=== PATIENT | male | born 1985 | race Caucasian/White ===

== ENCOUNTER 2018-07-20 11:37 | Emergency (ER) | payer BC ==
[~2018-07-20] VITALS: Ht 182.9 cm; Wt 117.9 kg
[2018-07-20 11:40] VITALS: BP 148/101
[2018-07-20] MEDS ORDERED: MUPI15CR TP (12:10)
[2018-07-20] MEDS ORDERED: SULF1TAB24 PO (12:10)
--- NOTE | 2018-07-20 12:13 | PHYS DOC ---
Past History Past Medical History: No Pertinent History Smoking: Cigarettes Adult General Chief Complaint Chief Complaint: CELLULITIS HPI HPI Patient is a 33 year old male who presents with complaining of area of erythema in upper extremity. Patient complaining of erythema and edema of left thumb started 1 week ago with drainage of pus movements of condition. Patient states he had another lesion in his right forearm and left forearm started 4 days ago that gradually getting force with mild itching. Patient states he thinks he has a spider bite because there is plenty of spider in his work area. Patient had history of MRSA. Patient denies fever and chills, nausea and vomiting, IV drug Use. Review of Systems Review of Systems Constitutional: Denies fever or chills [] Eyes: Denies change in visual acuity, redness, or eye pain [] HENT: Denies nasal congestion or sore throat [] Respiratory: Denies cough or shortness of breath [] Cardiovascular: No additional information not addressed in HPI [] GI: Denies abdominal pain, nausea, vomiting, bloody stools or diarrhea [] : Denies dysuria or hematuria [] Musculoskeletal: Denies back pain or joint pain [] Integument: Reports rash and skin lesions [] Neurologic: Denies headache, focal weakness or sensory changes [] Endocrine: Denies polyuria or polydipsia [] All other systems were reviewed and found to be within normal limits, except as documented in this note. Allergies Allergies Allergies Coded Allergies Type Severity Reaction Last Updated Verified No Known Drug Allergies 07/20/18 No Physical Exam Physical Exam Constitutional: Well developed, well nourished, mild distress, non-toxic appearance. [] HENT: Normocephalic, atraumatic, oropharynx moist, no oral exudates, nose normal. [] Eyes: PERRLA, EOMI, conjunctiva normal, no discharge. [] Neck: Normal range of motion, no tenderness, supple, no stridor. [] Cardiovascular:Heart rate regular rhythm, no murmur [] Lungs & Thorax: Bilateral breath sounds clear to auscultation [] Skin: Warm, dry, 3 areas of skin cellulitis of left thumb and bilateral forearm without drainage of pus or sign of abscess Back: No tenderness, no CVA tenderness. [] Extremities: No tenderness, no cyanosis, no clubbing, ROM intact, no edema. [] Neurologic: Alert and oriented X 3, normal motor function, normal sensory function, no focal deficits noted. [] Psychologic: Affect normal, judgement normal, mood normal. [] EKG EKG [] Radiology/Procedures Radiology/Procedures [] Course & Med Decision Making Course & Med Decision Making Evaluation of patient in ER showed 33-year-old male patient with a of cellulitis of bilateral upper extremity without sign of abscess. Plan to give a course of Bactroban and Bactrim and instruction to return to ER if not getting better in 48 hours. Dragon Disclaimer Dragon Disclaimer This electronic medical record was generated, in whole or in part, using a voice recognition dictation system. Departure Departure: Impression: Primary Impression: Cellulitis of upper extremity Additional Impressions: MRSA cellulitis Tobacco abuse Tobacco abuse counseling Disposition: HOME, SELF-CARE (at 1207) Referrals: PCP,NO (PCP) Patient Instructions: Cellulitis, Community-Associated MRSA, Smoking Cessation , Tips For Success Additional Instructions: Follow-up with your primary care physician in 3-5 days Return to ER if not getting better Scripts Mupirocin Calcium (BACTROBAN) 15 Gm Cream..g. 1 ELIZ TP TID, #30 GM Prov: TESHA ROSALES MD 07/20/18 Sulfamethoxazole/Trimethoprim (BACTRIM DS TABLET) 1 Each Tablet 1 TAB PO BID, #14 TAB Prov: TESHA ROSALES MD 07/20/18 Problem Qualifiers TESHA ROSALES MD Jul 20, 2018 12:13
== END 2018-07-20 12:24 | disposition home or self-care (01) ==
LOC: ER 11:37
DX: L03.114 Cellulitis of left upper limb (principal); L03.113 Cellulitis of right upper limb; F17.210 Nicotine dependence, cigarettes, uncomplicated; Z71.6 Tobacco abuse counseling
CPT/HCPCS: 99283

== ENCOUNTER 2018-10-16 16:26 | Emergency (ER) | payer BC ==
[~2018-10-16] VITALS: Ht 185.4 cm; Wt 124.3 kg
[~2018-10-16 16:26] MED LIST: MUPI15CR TP; SULF1TAB24 PO
--- NOTE | 2018-10-16 16:58 | PHYS DOC ---
Past History Past Medical History: No Pertinent History Past Surgical History: No Surgical History Smoking: Cigarettes Alcohol Use: Occasionally Drug Use: None Adult General Chief Complaint Chief Complaint: UPPER EXTREMITY INJURY HPI HPI Patient is a33 year old male who presents with incision to his left, nondominant , index finger. 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 This happened shortly prior to arrival. Patient used quick clot to stop the bleeding. Patient reports that there was no pulsatile bleeding. Patient denies any numbness or tingling. Pain is mild to moderate in intensity. Movement makes it worse. Holding direct pressure along with the quick clot helped to stop the bleeding.[] Review of Systems Review of Systems Constitutional: Denies fever or chills [] Eyes: Denies change in visual acuity, redness, or eye pain [] HENT: Denies nasal congestion or sore throat [] Respiratory: Denies cough or shortness of breath [] Cardiovascular: No chest pain or palpitations[] GI: Denies abdominal pain, nausea, vomiting, bloody stools or diarrhea [] : Denies dysuria or hematuria [] Musculoskeletal: See history of present illness[] Integument: Denies rash or skin lesions [] Neurologic: Denies headache, focal weakness or sensory changes [] Endocrine: Denies polyuria or polydipsia [] All other systems were reviewed and found to be within normal limits, except as documented in this note. Allergies Allergies Allergies Coded Allergies Type Severity Reaction Last Updated Verified No Known Drug Allergies 07/20/18 No Physical Exam Physical Exam Constitutional: Well developed, well nourished, no acute distress, non-toxic appearance. [] HENT: Normocephalic, atraumatic, bilateral external ears normal, oropharynx moist, no oral exudates, nose normal. [] Eyes: PERRLA, EOMI, conjunctiva normal, no discharge. [] Neck: Normal range of motion, no tenderness, supple, no stridor. [] Cardiovascular:Heart rate regular rhythm, no murmur [] Lungs & Thorax: Bilateral breath sounds clear to auscultation [] Abdomen: Not examined[] Skin: Warm, dry, no erythema, no rash. [] Back: No tenderness, no CVA tenderness. [] Extremities: Tenderness present over the distal phalanx of his left index finger , dorsal surface. Refill is less than 2 seconds, FDS, FDP, and extensor mechanisms are intact, 2 point discrimination is less than 5 mm, no cyanosis, no clubbing, ROM intact, no edema. [] Neurologic: Alert and oriented X 3, normal motor function, normal sensory function, no focal deficits noted. [] Psychologic: Affect normal, judgement normal, mood normal. [] EKG EKG [] Radiology/Procedures Radiology/Procedures [] Course & Med Decision Making Course & Med Decision Making Pertinent Labs and Imaging studies reviewed. (See chart for details) Patient arrived, was placed in bed, in tolerated exam well. Patient had to have removal of the quick clot product which she tolerated well. Wound was repaired. Hemostasis was achieved. Patient was discharged in improved condition. Medical decision making: There is no evidence of tendon, neurologic, nor vascular injury.[] Dragon Disclaimer Dragon Disclaimer This electronic medical record was generated, in whole or in part, using a voice recognition dictation system. Departure Departure: Impression: Primary Impression: Laceration of left index finger Disposition: HOME, SELF-CARE Condition: GOOD Referrals: PCP,NO (PCP) Patient Instructions: Sterile Tape Wound Closure Additional Instructions: Keep the wound clean and dry. Chest from the edge of the Steri-Strips as it starts curling up. When it falls off, the wound should be well healed, consistent with when sutures would come out. Wear the splint to keep the area immobilized to allow for better healing. Follow-up with your regular doctor in 2 days for a wound check. If you do not have a regular doctor, list of local low -cost clinics will be provided for you. Return to the ER if worsening pain, continued bleeding, purulent drainage, increasing redness, or any other concerns. Laceration Repair Lac Repair Indication: [] Procedure: The patient was placed in the appropriate position. The area was then cleansed from the quick clot. The laceration was closed with Steri-Strips and Dermabond. The wound area was then dressed with a sterile dressing. A finger splint was placed to provide immobilization.. Total repaired wound length: 2.5 cm. Other Items: None The patient tolerated the procedure well, hemostasis was achieved. Complications: None. Problem Qualifiers Primary Impression: Laceration of left index finger Encounter type: initial encounter Damage to nail status: without damage Foreign body presence: without foreign body Qualified Codes: S61.211A - Laceration without foreign body of left index finger without damage to nail, initial encounter ANANYA AHUMADA DO Oct 16, 2018 16:58
[2018-10-16] MEDS ORDERED: DIPHTH,PERTUSS(ACELL),TET TOX 0.5 ML DISP.SYRIN. VAX IM ONE (17:00)
[2018-10-16 17:32] VITALS: BP 154/79
== END 2018-10-16 17:33 | disposition home or self-care (01) ==
LOC: ER 16:26
DX: S61.211A Laceration without foreign body of left index finger without damage to nail, initial encounter (principal); F17.210 Nicotine dependence, cigarettes, uncomplicated; W26.0XXA Contact with knife, initial encounter; Y93.89 Activity, other specified; Y92.89 Other specified places as the place of occurrence of the external cause; Y99.8 Other external cause status
CPT/HCPCS: 12001; 90471; 90715; 99283

== ENCOUNTER 2020-03-02 12:45 | Emergency (ER) | payer BC ==
[~2020-03-02] VITALS: Ht 185.4 cm; Wt 124.3 kg
[2020-03-02 12:54] VITALS: BP 187/95
[2020-03-02] MEDS ORDERED: IV NORMAL SALINE 1,000ML 1,000 ML IV ONE (13:00)
[2020-03-02] MEDS ORDERED: IOHEXOL 300 MG/ML 75 ML VIAL. IV ONE (13:15)
--- NOTE | 2020-03-02 13:19 | PHYS DOC ---
Past History Past Medical History: GERD, Hypertension Past Surgical History: No Surgical History Smoking: Cigarettes Alcohol Use: None Drug Use: None General Adult EDM: Chief Complaint: ABDOMINAL PAIN HPI: HPI: 34-year-old male presents with left upper quadrant abdominal discomfort. He does not describe it as a pain. He states it is more like a fullness or pressure in that area. It feels like it is coming from the inside. The patient does not recall which day it started. It has been several days. 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 He comes in today because it will go away and he just wants to make sure he does have a serious injury. He denies fever chills. He has no other symptoms. He is not on any other daily medications but is supposed to be on blood pressure medicine. Review of Systems: Review of Systems: Constitutional: Denies fever or chills Eyes: Denies change in visual acuity HENT: Denies nasal congestion or sore throat Respiratory: Denies cough or shortness of breath Cardiovascular: Denies chest pain or edema GI: dLUQ abdominal pain. Denies nausea, vomiting, bloody stools or diarrhea : Denies dysuria Musculoskeletal: Denies back pain or joint pain Integument: Denies rash Neurologic: Denies headache, focal weakness or sensory changes Endocrine: Denies polyuria or polydipsia Lymphatic: Denies swollen glands Psychiatric: Denies depression or anxiety Heart Score: Risk Factors: Risk Factors: DM, Current or recent (<one month) smoker, HTN, HLP, family history of CAD, obesity. Risk Scores: Score 0 - 3: 2.5% MACE over next 6 weeks - Discharge Home Score 4 - 6: 20.3% MACE over next 6 weeks - Admit for Clinical Observation Score 7 - 10: 72.7% MACE over next 6 weeks - Early Invasive Strategies Current Medications: Current Meds: Current Medications Medications (Trade) Dose Ordered Sig/Osvaldo Start Time Stop Time Status Last Admin Dose Admin Iohexol (Omnipaque 300 Mg/ml) 75 ml 1X ONCE 03/02/20 13:15 03/02/20 13:16 Sodium Chloride 1,000 ml @ 1,000 mls/hr 1X ONCE 03/02/20 13:00 03/02/20 13:59 03/02/20 13:00 1,000 MLS/HR Allergies: Allergies: Allergies Coded Allergies Type Severity Reaction Last Updated Verified No Known Drug Allergies 10/16/18 No Physical Exam: PE: Constitutional: Well developed, well nourished, obese, no acute distress, non- toxic appearance. [] HENT: Normocephalic, atraumatic, bilateral external ears normal, oropharynx moist, no oral exudates, nose normal. [] Eyes: PERRLA, EOMI, conjunctiva normal, no discharge. [] Neck: Normal range of motion, no tenderness, supple, no stridor. [] Cardiovascular: Heart rate regular rhythm, no murmur [] Lungs & Thorax: Bilateral breath sounds clear to auscultation [] Abdomen: Bowel sounds normal, soft, no tenderness, no masses, no pulsatile masses. [] Skin: Warm, dry, no erythema, no rash. [] Back: No tenderness, no CVA tenderness. [] Extremities: No tenderness, no cyanosis, no clubbing, ROM intact, no edema. [] Neurologic: Alert and oriented X 3, normal motor function, normal sensory function, no focal deficits noted. [] Psychologic: Affect normal, judgement normal, mood normal. [] Current Patient Data: Vital Signs: Vital Signs Date Time Temp Pulse Resp B/P (MAP) Pulse Ox O2 Delivery O2 Flow Rate FiO2 03/02/20 12:54 98.2 81 16 187/95 (125) 99 Room Air EKG: EKG: [] Radiology/Procedures: Radiology/Procedures: [] Impressions: Examination: CT of the abdomen pelvis with IV contrast HISTORY: History of left upper quadrant pain COMPARISON: None available TECHNIQUE: Axial CT images of the abdomen pelvis were performed with IV contrast. Coronal and sagittal reformats are performed Exposure: One or more of the following individualized dose reduction techniques were utilized for this examination: 1. Automated exposure control 2. Adjustment of the mA and/or kV according to patient size 3. Use of iterative reconstruction technique FINDINGS: The bibasilar lungs are clear. No evidence of free air identified in the abdomen. The liver demonstrates mild decreased attenuation could be mild hepatic steatosis. The spleen, adrenals grossly appears unremarkable. The gallbladder is minimally distended. The stomach is mildly distended. The common bile duct appears slightly prominent measuring 7 mm. Questionable faint cystic structure identified in the head of the pancreas measuring about 1.5 cm, nonspecific could be artifactual or a pancreatic cyst or cystic lesion. The head and proximal portion of the body of the pancreas appears small and somewhat hypodense. The small bowel is nondilated. The appendix is normal. Feces and gas noted in the colon. The gallbladder is mildly distended The bilateral kidneys enhance symmetrically. Bilateral L5 spondylolysis without evidence of listhesis. IMPRESSION: 1. A 1.5 cm questionable cystic structure identified in the head of the pancreas could be artifactual or pancreatic cyst or cystic lesion.. The head and proximal portion of the body of the pancreas appears small and somewhat hypodense. Pancreatitis is not excluded. Recommend correlation with lab values and follow-up MRI abdomen with MRCP is recommended. 2. Mild prominent appearing common bile duct. Electronically signed by: Carroll Mart MD (03/02/2020 1:37 PM) [id number] DICTATED AND SIGNED BY: CARROLL MART MD DATE: 03/02/20 1337 CC: CHLOE PIERRE DO; PCP,NO ~ Course & Med Decision Making: Course & Med Decision Making Pertinent Labs and Imaging studies reviewed. (See chart for details) The patient's labs are unremarkable. The CT of the abdomen and pelvis does not show a hernia. It does show a possible cystic lesion in the pancreatic head. See official report for details. His lipase is 70. Not sure if this is the cause of the patient's pain or if it is really just a pulled muscle. I have advised that he follow-up with his primary care physician. He also needs to get back on blood pressure medicine as he has hypertension. He is stable for discharge at this time. [] Dragon Disclaimer: Dragon Disclaimer: This electronic medical record was generated, in whole or in part, using a voice recognition dictation system. Departure Departure: Impression: Primary Impression: Left upper quadrant abdominal pain Additional Impressions: Pancreatic abnormality Hypertension Qualified Codes: I10 - Essential (primary) hypertension Disposition: 01 HOME/RESIDENCE PRIOR TO ADM Condition: STABLE Referrals: PCP,NO (PCP) Patient Instructions: Abdominal Pain, [id number], Hypertension, [id number] Additional Instructions: You should follow-up with a primary care physician to have your pancreas further evaluated. CHLOE PIERRE DO March 02, 2020 13:19
[2020-03-02 13:33] LABS: BASO % 0 % (0-3); EOS # 0.3 x10^3/uL (0.0-0.7); EOS % 5 % (0-3); LYMPH # 2.6 x10^3/uL (1.0-4.8); LYMPH % 39 % (24-48); MEAN CORPUSCULAR HEMOGLOBIN 30 pg (25-35); MEAN CORPUSCULAR HGB CONC 34 g/dL (31-37); MEAN CORPUSCULAR VOLUME 90 fL (79-100); MONO # 0.5 x10^3/uL (0.0-1.1); MONO % 7 % (0-9); NEUT # 3.2 x10^3uL (1.8-7.7); NEUT % 49 % (31-73); PLATELET COUNT 252 x10^3/uL (140-400); WHITE BLOOD COUNT 6.7 x10^3/uL (4.0-11.0)
--- NOTE | 2020-03-02 13:40 | RAD ---
Examination: CT of the abdomen pelvis with IV contrast HISTORY: History of left upper quadrant pain COMPARISON: None available TECHNIQUE: Axial CT images of the abdomen pelvis were performed with IV contrast. Coronal and sagittal reformats are performed Exposure: One or more of the following individualized dose reduction techniques were utilized for this examination: 1. Automated exposure control 2. Adjustment of the mA and/or kV according to patient size 3. Use of iterative reconstruction technique FINDINGS: The bibasilar lungs are clear. No evidence of free air identified in the abdomen. The liver demonstrates mild decreased attenuation could be mild hepatic steatosis. The spleen, adrenals grossly appears unremarkable. The gallbladder is minimally distended. The stomach is mildly distended. The common bile duct appears slightly prominent measuring 7 mm. Questionable faint cystic structure identified in the head of the pancreas measuring about 1.5 cm, nonspecific could be artifactual or a pancreatic cyst or cystic lesion. The head and proximal portion of the body of the pancreas appears small and somewhat hypodense. The small bowel is nondilated. The appendix is normal. Feces and gas noted in the colon. The gallbladder is mildly distended The bilateral kidneys enhance symmetrically. Bilateral L5 spondylolysis without evidence of listhesis. IMPRESSION: 1. A 1.5 cm questionable cystic structure identified in the head of the pancreas could be artifactual or pancreatic cyst or cystic lesion.. The head and proximal portion of the body of the pancreas appears small and somewhat hypodense. Pancreatitis is not excluded. Recommend correlation with lab values and follow-up MRI abdomen with MRCP is recommended. 2. Mild prominent appearing common bile duct. Electronically signed by: Carroll Mart MD (03/02/2020 1:37 PM) [id number]
[2020-03-02 14:02] LABS: CREATININE 0.8 mg/dL (0.7-1.3); GFR 109.4; POTASSIUM 4.1 mmol/L (3.5-5.1)
[2020-03-02 14:08] LABS: ALBUMIN 3.3 g/dL (3.4-5.0); TOTAL BILIRUBIN 0.2 mg/dL (0.2-1.0); TOTAL PROTEIN 6.6 g/dL (6.4-8.2)
== END 2020-03-02 14:20 | disposition home or self-care (01) ==
LOC: ER 12:45
DX: R10.12 Left upper quadrant pain (principal); K86.89 Other specified diseases of pancreas; I10 Essential (primary) hypertension; K21.9 Gastro-esophageal reflux disease without esophagitis; F17.210 Nicotine dependence, cigarettes, uncomplicated
CPT/HCPCS: 36415; 74177; 80053; 83690; 85025; 99285; Q9967; J7030

== ENCOUNTER → 2020-03-18 | Outpatient (CLI) | payer BC ==
[2020-03-02 12:54] VITALS: BP 187/95
--- NOTE | 2020-03-18 18:02 | RAD ---
Study: CT abdomen/pelvis without intravenous contrast Indication: Left lower quadrant pain. Comparison: 03/02/2020 Technique: Helical CT imaging performed of the abdomen and pelvis without the use of intravenous contrast. Sagittal and coronal reformats were obtained. One or more of the following individualized dose reduction techniques were utilized for this examination: 1. Automated exposure control 2. Adjustment of the mA and/or kV according to patient size 3. Use of iterative reconstruction technique. Findings: Inherently limited evaluation without intravenous contrast. No newly seen abnormality throughout the lower chest. Unchanged liver, gallbladder, pancreas, spleen and adrenal glands. Scattered calcified granulomas. Punctate nonobstructing intrarenal stone at the upper pole of the right kidney. Unremarkable bladder and prostate. Contrast opacifies the colonic lumen through the rectum. Mild wall thickening at a few locations appears secondary to physiologic collapse and there is no pericolonic inflammation. Normal appendix. Nonobstructed small bowel. Unremarkable stomach. Normal aortic caliber. Unchanged size of scattered abdominopelvic lymph nodes to include a 1.3 cm short axis precaval lymph node. No free fluid or gas. Unremarkable body wall soft tissues. No acute or aggressive osseous process. Chronic bilateral pars defects at L5. Scattered degenerative changes. Disc bulge with a left paracentral protrusion or extrusion at L4-L5 that contributes to a degree of central canal stenosis and likely encroachment on the left lateral recess, image 88 series 2. Impression: 1. No acute abnormality is seen to account for the patient's symptoms. 2. Punctate nonobstructing intrarenal stone at the upper pole of the right kidney. 3. Disc bulge with a left paracentral protrusion or extrusion at L4-L5 likely contributing to a degree of central canal and left lateral recess stenosis. Chronic bilateral pars defects at L5. Electronically signed by: TUYET WELLER MD (03/18/2020 5:59 PM) [id number]
== END ==
LOC: CT 17:17
PROVIDERS: ATTEND Family Medicine
DX: N20.0 Calculus of kidney (principal)
CPT/HCPCS: 74176

== ENCOUNTER 2020-07-04 11:11 | Emergency (ER) | payer BC ==
[~2020-07-04] VITALS: Ht 185.4 cm; Wt 128.0 kg
--- NOTE | 2020-07-04 12:23 | PHYS DOC ---
Past History Past Medical History: GERD, Hypertension Past Surgical History: No Surgical History Smoking: Cigarettes Alcohol Use: None Drug Use: None General Adult EDM: Chief Complaint: FLANK PAIN HPI: HPI: 34-year-old male presents with right lateral abdominal wall pain. This pain started several days ago. Has been intermittent in nature. He has been coughing more lately. He had a long coughing spell several days ago after smoking marijuana. The pain started after this. He just assumed it was a pulled muscle and has been ignoring it. The pain got worse today at work. It is a pulling and cramping sensation. At its worst it is 7 out of 10. It is currently 2 out of 10 without movement. Patient has no history of trauma or falls lately. It hurts with deep breaths but he is not short of breath. No history of kidney stone. He was recently diagnosed with a small pancreatic abscess that was reported to have resolved. He denies fever or chills. He has no other complaints this time. Review of Systems: Review of Systems: Constitutional: Denies fever or chills Eyes: Denies change in visual acuity HENT: Denies nasal congestion or sore throat Respiratory: Denies cough or shortness of breath Cardiovascular: Denies chest pain or edema GI: Denies abdominal pain, nausea, vomiting, bloody stools or diarrhea : Denies dysuria Musculoskeletal: Right lateral abdominal wall pain Integument: Denies rash Neurologic: Denies headache, focal weakness or sensory changes Endocrine: Denies polyuria or polydipsia Lymphatic: Denies swollen glands Psychiatric: Denies depression or anxiety Heart Score: Risk Factors: Risk Factors: DM, Current or recent (<one month) smoker, HTN, HLP, family history of CAD, obesity. Risk Scores: Score 0 - 3: 2.5% MACE over next 6 weeks - Discharge Home Score 4 - 6: 20.3% MACE over next 6 weeks - Admit for Clinical Observation Score 7 - 10: 72.7% MACE over next 6 weeks - Early Invasive Strategies Allergies: Allergies: Allergies Coded Allergies Type Severity Reaction Last Updated Verified No Known Drug Allergies 10/16/18 No Physical Exam: PE: Constitutional: Well developed, well nourished, obese, no acute distress, non- toxic appearance. [] HENT: Normocephalic, atraumatic, bilateral external ears normal, oropharynx moist, no oral exudates, nose normal. [] Eyes: PERRLA, EOMI, conjunctiva normal, no discharge. [] Neck: Normal range of motion, no tenderness, supple, no stridor. [] Cardiovascular: Heart rate regular rhythm, no murmur [] Lungs & Thorax: Bilateral breath sounds clear to auscultation [] Abdomen: Bowel sounds normal, soft, tenderness to palpation of the right lateral upper abdomen, no masses, no pulsatile masses. [] Skin: Warm, dry, no erythema, no rash. [] Back: No tenderness, no CVA tenderness. [] Extremities: No tenderness, no cyanosis, no clubbing, ROM intact, no edema. [] Neurologic: Alert and oriented X 3, normal motor function, normal sensory function, no focal deficits noted. [] Psychologic: Affect normal, judgement normal, mood normal. [] EKG: EKG: [] Radiology/Procedures: Radiology/Procedures: [] Impressions: INDICATION: Reason: right flank pain, possible hernia / Spl. Instructions: / History: COMPARISON: March 18, 2020 TECHNIQUE: Axial CT images obtained through the abdomen and pelvis without contrast. One or more of the following individualized dose reduction techniques were utilized for this examination: 1. Automated exposure control; 2. Adjustment of the mA and/or kV according to patient size; 3. Use of iterative reconstruction technique. FINDINGS: Abdominal aorta is not aneurysmal. Fat-containing inguinal hernias. Mildly enlarged lymph nodes in the bilateral groin measuring up to about 10 mm short axis. No intrahepatic bile duct dilation. No peripancreatic fluid collection. Splenic calcified granulomas. No hydronephrosis. Urinary bladder is partially distended. 1 mm nonobstructive right renal stone. No periappendiceal inflammatory changes. No dilated loops of bowel to suggest obstruction. Pars defects at L5. Degenerative changes the spine are identified including disc protrusions most severe at L4-5 where there is associated central canal stenosis. IMPRESSION: * No evidence of bowel obstruction, hydronephrosis or appendicitis. * Small fat-containing inguinal hernias and tiny fat-containing umbilical hernia. * Degenerative changes the spine including a disc protrusion at L4-5 with resultant central canal stenosis and effacement of the left lateral recess. There is also narrowing of the neural foramina. Electronically signed by: Marcella Sheets MD (07/04/2020 1:32 PM) [id number] DICTATED AND SIGNED BY: MARCELLA SHEETS MD DATE: 07/04/20 1339 CC: CHLOE PIERRE DO; LALY GRAYSON MD ~ Course & Med Decision Making: Course & Med Decision Making Pertinent Labs and Imaging studies reviewed. (See chart for details) The patient CT does not show acute findings in the area of concern. He has other incidental findings. See official report for more details. I believe is most likely that the patient strained a muscle. There is no blood in his urine so kidney stone is highly unlikely. I believe he can continue to manage with ibuprofen and Tylenol at home. This should get better on its own. He is stable for discharge at this time. [] Dragon Disclaimer: Dragon Disclaimer: This electronic medical record was generated, in whole or in part, using a voice recognition dictation system. Departure Departure: Impression: Primary Impression: Abdominal wall pain in right flank Disposition: 01 HOME/RESIDENCE PRIOR TO ADM Condition: STABLE Referrals: LALY GRAYSON MD (PCP) Patient Instructions: Chest Wall Pain, [id number] Justification of Admission: Justification of Admission: Justification of Admission Dx: N/A CHLOE PIERRE DO Jul 04, 2020 12:23
[2020-07-04 12:35] LABS: BACTERIA,URINE 0 /HPF (0-FEW); BILIRUBIN,URINE NEG (NEG); CLARITY,URINE CLEAR; COLOR,URINE YELLOW; GLUCOSE,URINE NEG (NEG); NITRITE,URINE NEG (NEG); RBC,URINE OCC /HPF (0-2); SQUAMOUS EPITHELIAL CELL,UR FEW /LPF; UROBILINOGEN,URINE 0.2 mg/dL (0.2 mg/dL); WBC,URINE OCC /HPF (0-4)
[2020-07-04] MEDS ORDERED: IOHEXOL 300 MG/ML 75 ML VIAL. IV ONE (12:45)
[2020-07-04] MEDS ORDERED: CONTRAST GIVEN. MC PRN (13:00)
--- NOTE | 2020-07-04 13:35 | RAD ---
INDICATION: Reason: right flank pain, possible hernia / Spl. Instructions: / History: COMPARISON: March 18, 2020 TECHNIQUE: Axial CT images obtained through the abdomen and pelvis without contrast. One or more of the following individualized dose reduction techniques were utilized for this examination: 1. Automated exposure control; 2. Adjustment of the mA and/or kV according to patient size; 3. Use of iterative reconstruction technique. FINDINGS: Abdominal aorta is not aneurysmal. Fat-containing inguinal hernias. Mildly enlarged lymph nodes in the bilateral groin measuring up to about 10 mm short axis. No intrahepatic bile duct dilation. No peripancreatic fluid collection. Splenic calcified granulomas. No hydronephrosis. Urinary bladder is partially distended. 1 mm nonobstructive right renal stone. No periappendiceal inflammatory changes. No dilated loops of bowel to suggest obstruction. Pars defects at L5. Degenerative changes the spine are identified including disc protrusions most severe at L4-5 where there is associated central canal stenosis. IMPRESSION: * No evidence of bowel obstruction, hydronephrosis or appendicitis. * Small fat-containing inguinal hernias and tiny fat-containing umbilical hernia. * Degenerative changes the spine including a disc protrusion at L4-5 with resultant central canal stenosis and effacement of the left lateral recess. There is also narrowing of the neural foramina. Electronically signed by: Gomez Sheets MD (07/04/2020 1:32 PM) [id number]
== END 2020-07-04 14:14 | disposition home or self-care (01) ==
LOC: ER 11:11
DX: R10.9 Unspecified abdominal pain (principal); K21.9 Gastro-esophageal reflux disease without esophagitis; I10 Essential (primary) hypertension; F17.210 Nicotine dependence, cigarettes, uncomplicated
CPT/HCPCS: 74176; 81001; 99284

== ENCOUNTER 2020-07-24 19:31 | Emergency (ER) | payer BC ==
[~2020-07-24] VITALS: Ht 182.9 cm; Wt 120.0 kg
[2020-07-24] MEDS ORDERED: ACETAMINOPHEN 500 MG TABLET PO ONE (20:45)
--- NOTE | 2020-07-24 21:04 | RAD ---
Chest radiograph 07/24/2020 8:35 PM INDICATION: Mid rib pain COMPARISON: None available TECHNIQUE: Frontal and lateral views of the chest are provided. FINDINGS: The cardiomediastinal silhouette is within normal limits. There are no pleural effusions. There is no pulmonary vascular congestion. There is no pneumothorax. There is subsegmental atelectasis in the left lung base. Mildly displaced posterior lateral right eighth rib fracture. IMPRESSION: There is subsegmental atelectasis at the left lung base. There is a mildly displaced posterolateral right eighth rib fracture. Electronically signed by: Samaria Hernandez MD (07/24/2020 9:01 PM) [facility]
--- NOTE | 2020-07-24 21:14 | PHYS DOC ---
Past History Past Medical History: No Pertinent History Past Surgical History: No Surgical History Smoking: Cigarettes Alcohol Use: None Drug Use: None Adult General Chief Complaint Chief Complaint: RIB PAIN HPI HPI Patient is a 35-year-old male who presents with right rib pain. Onset was earlier this evening when at rest, patient coughed and immediately after coughing suffered focal right chest wall pain without radiation. He is co ncerned he broke a rib. Denies any trauma, history of immunocompromised state/conditions, no abuse. Patient has not taken anything for pain at this time. Reports inability to take a full breath due to pain Review of Systems Review of Systems Fourteen body systems of review of systems have been reviewed. See HPI for pertinent positives and negative responses, other vega all other systems are negative, non-pertinent or non-contributory Current Medications Current Medications Current Medications Medications (Trade) Dose Ordered Sig/Osvaldo Start Time Stop Time Status Last Admin Dose Admin Acetaminophen (Tylenol) 1,000 mg 1X ONCE 07/24/20 20:45 07/24/20 20:46 DC 07/24/20 20:54 1,000 MG Allergies Allergies Allergies Coded Allergies Type Severity Reaction Last Updated Verified No Known Drug Allergies 10/16/18 No Physical Exam Physical Exam Constitutional: Well developed, well nourished, obese, mild distress from pain, non-toxic appearance. HENT: Normocephalic, atraumatic, bilateral external ears normal, oropharynx moist, no oral exudates, nose normal. Eyes: PERRLA, EOMI, conjunctiva normal, no discharge. Neck: Normal range of motion, no tenderness, supple, no stridor. Cardiovascular: Heart rate regular, sinus rhythm, no murmurs rubs or gallops, tenderness to palpation of right lateral right rib cage over mid axillary line without any obvious palpable abnormalities or crepitus Lungs & Thorax: Bilateral breath sounds clear to auscultation, no accessory muscle usage Abdomen: Bowel sounds normal, soft, no tenderness, no masses, no pulsatile masses. Nonsurgical abdomen, no peritoneal signs Skin: Warm, dry, no erythema, no rash. Back: No tenderness, no CVA tenderness. Extremities: No tenderness, no cyanosis, no clubbing, ROM intact, no edema. Neurologic: Alert and oriented X 3, grossly normal motor & sensory function, no focal deficits noted. Psychologic: Affect normal, judgement normal, anxious mood Current Patient Data Vital Signs Vital Signs Date Time Temp Pulse Resp B/P (MAP) Pulse Ox O2 Delivery O2 Flow Rate FiO2 07/24/20 19:39 98.6 66 18 156/92 (113) 95 Room Air EKG EKG [] Radiology/Procedures Radiology/Procedures PROCEDURE: CHEST PA & LATERAL Chest radiograph 07/24/2020 8:35 PM INDICATION: Mid rib pain COMPARISON: None available TECHNIQUE: Frontal and lateral views of the chest are provided. FINDINGS: The cardiomediastinal silhouette is within normal limits. There are no pleural effusions. There is no pulmonary vascular congestion. There is no pneumothorax. There is subsegmental atelectasis in the left lung base. Mildly displaced posterior lateral right eighth rib fracture. IMPRESSION: There is subsegmental atelectasis at the left lung base. There is a mildly displaced posterolateral right eighth rib fracture. Electronically signed by: Samaria Hernandez MD (07/24/2020 9:01 PM) [facility] Course & Med Decision Making Course & Med Decision Making Well-appearing ambulatory patient seen on arrival ABCs grossly nonconcerning Comprehensive history and physical exam obtained with subsequent diagnostic work -up ordered and reviewed Discussed most likely diagnosis of isolated right eighth rib fracture I reviewed most likely clinical course revolving around supportive care and as needed pain control. I discussed potential need for outpatient physical therapy consultation among other things such as pain specialist referral for potential rib block Patient was given Tylenol and [facility] this ER visit with moderate relief in symptomology. I offered patient short term prescription of narcotic pain medication for as needed pain with close PCP follow-up advised Strict return precautions were discussed with good understanding by patient, all questions and concerns addressed prior to ER departure in stable condition Dragon Disclaimer Dragon Disclaimer This electronic medical record was generated, in whole or in part, using a voice recognition dictation system. Departure Departure: Impression: Primary Impression: Right rib fracture Disposition: 01 DC HOME SELF CARE/HOMELESS Condition: STABLE Referrals: LALY GRAYSON MD (PCP) Patient Instructions: Rib Fracture Scripts Hydrocodone Bit/Acetaminophen (NORCO 5-325 TABLET) 1 Each Tablet 1-2 TAB PO Q4-6HRS for Severe pain, #12 TAB Prov: JOSUE SCHULTZ DO 07/24/20 JOSUE SCHULTZ DO Jul 24, 2020 21:14
[2020-07-24 21:15] VITALS: BP 129/80
[2020-07-24] MEDS ORDERED: HYDR-3165 PO (21:23)
[2020-07-24] MEDS ORDERED: HYDROcodone/APAP 5/325MG 1 TAB TABLET ONE (21:28)
[2020-07-24] MEDS ORDERED: HYDROcodone/APAP 5/325MG 1 TAB TABLET PO ONE (21:30)
== END 2020-07-24 21:34 | disposition home or self-care (01) ==
LOC: ER 19:31
DX: S22.31XA Fracture of one rib, right side, initial encounter for closed fracture (principal); F17.210 Nicotine dependence, cigarettes, uncomplicated; X50.9XXA Other and unspecified overexertion or strenuous movements or postures, initial encounter; Y93.89 Activity, other specified; Y92.89 Other specified places as the place of occurrence of the external cause; Y99.8 Other external cause status
CPT/HCPCS: 71046; 99283